=== PATIENT | male | born 2000 | race Caucasian/White ===

== ENCOUNTER 2022-06-01 18:42 | Emergency (ER) | payer SELFPAY ==
[2022-06-01] MEDS ORDERED: Sodium Chloride 0.9% 10 ML Syringe FLUSH PRN ×2 (19:03→20:13)
[2022-06-01 19:40] LABS: CHLORIDE,CL 102 mmol/L (98-107); PTT,PARTIAL THROMBOPLSTIN TIME 24.8 SEC (20.5-30.9); SODIUM,NA 139 mmol/L (136-145)
[2022-06-01 19:41] LABS: ESTIMATED GFR 123 mL/min (>=60)
[2022-06-01] MEDS ORDERED: Iopamidol 612 MG/ML 100 ML Bottle IVPUSH ONE (20:16)
[2022-06-01 20:23] LABS: CORONAVIRUS COVID-19 NAA NEGATIVE (NEGATIVE); RESPIRATORY SYNCYTIAL VIR NAA NEGATIVE (NEGATIVE)
== END 2022-06-01 21:58 | disposition home or self-care (01) ==
LOC: VM.ED 18:42
DX: E80.7 Disorder of bilirubin metabolism, unspecified (principal); Z20.822 Contact with and (suspected) exposure to COVID-19
CPT/HCPCS: 0241U; 36415; 71045; 74177; 80053; 81003; 83690; 83735; 84100; 84484; 85025; 85610; 85730; 86140; 93005; 99284; 99285; Q9967